=== PATIENT | male | born 1980 | race Caucasian/White ===

== ENCOUNTER 2016-03-21 13:06 | Emergency (ER) | payer SELFPAY ==
[~2016-03-21] VITALS: Ht 175.3 cm; Wt 74.5 kg
[~2016-03-21 13:06] MED LIST: BACT800T5 PO; SUBO8MIS SL
[2016-03-21 13:15] VITALS: BP 130/88; PULSE 73; RESP 16; TEMP 98.8; O2SAT 100
--- NOTE | 2016-03-21 14:23 | RADHPO ---
EXAM DATE/TIME: 03/21/2016 13:58 [place] COMPARISON: No previous studies available for comparison. INDICATIONS : Left heel pain. Possible foreign body. MEDICAL HISTORY : None. SURGICAL HISTORY : None. ENCOUNTER: Initial ACUITY: 4 - 6 months PAIN SCORE: 7/10 LOCATION: Left heel FINDINGS: Two view examination of the left heel demonstrates the trabecula to be intact with no evidence of fra cture. There is a normal calcaneal angle. The soft tissues are of normal thickness. CONCLUSION: Unremarkable examination of the left heel. Kera Boss MD on March 21, 2016 at 14:22 Board Certified Radiologist. This report was verified electronically.
--- NOTE | 2016-03-21 14:38 | PD ---
HPI Chief Complaint: Foreign Body Time Seen by Provider: 13:30 Travel History International Travel<30 days: No Contact w/Intl Traveler<30days: No Traveled to known affect area: No History of Present Illness HPI 36-year-old male presents to the emergency room for evaluation of left heel pain for the past 4-5 months. Patient states 5 months ago he stepped on stained -glass. His was able to pull out a large piece of glass but patient states since then he has had persistent discomfort in the heel and is concerned that there is retained foreign body. Denies redness, drainage, or edema. States he came in today because they can no longer take it. He has not been taking anything for pain. Patient has not been able to follow up with the primary care physician because he does not have insurance. [facility] Past Medical History Diminished Hearing: No Influenza Vaccination: No Social History Alcohol Use: No Tobacco Use: Yes (1 PPD) Substance Use: No Allergies-Medications (Allergen,Severity, Reaction): Coded Allergies: No Known Allergies (Verified , 03/21/16) Reported Meds & Prescriptions Reported Meds & Active Scripts Active No Active Prescriptions or Reported Medications Review of Systems Except as stated in HPI: all other systems reviewed are Neg Physical Exam Narrative GENERAL: Well-nourished, well-developed male in no acute distress. Afebrile. Ambulatory. SKIN: Warm and dry. There is an indurated area in the left heel which measures about 1 cm in diameter. No fluctuance, pointing, drainage, inflammation, or lymphangitis. HEAD: Normocephalic. EYES: No scleral icterus. No injection or drainage. NECK: Supple, trachea midline. No JVD or lymphadenopathy. EXTREMITY: Left heel nontender to palpation. Full range of motion in all joints. No joint swelling/injury. Data Data Last Documented VS Vital Signs Date Time Temp Pulse Resp B/P Pulse Ox O2 Delivery O2 Flow Rate FiO2 03/21/16 13:15 98.8 73 16 130/88 100 Orders Foot, Heel Only ([id number]) (03/21/16 ) [facility] Medical Decision Making Medical Screen Exam Complete: Yes Emergency Medical Condition: Yes Medical Record Reviewed: Yes Differential Diagnosis Foreign body versus abscess versus plantar wart Narrative Course 36-year-old male presents to the emergency room for evaluation of possible foreign body/glass in his left heel. Patient states about 5 months ago he stepped on glass and he believes are still a retained foreign body because he has had persistent pain. States he can no longer take the pain. He has not been able to follow-up because he does not have a primary care physician. Lower extremity is neurovascularly intact. There is a 1 cm area of induration in the heel without evidence of infection. No foreign body appreciated on x- ray. Patient either has plantar warts or scar tissue from previous injury. No indication for I&D. He was told to follow up with chief financial officer to return for worsening symptoms. He understands and agrees to plan. Diagnosis Primary Impression: Pain of left heel Referrals: Hospice Patient Care Secretary Patient Instructions: General Instructions Additional Instructions: Rest and drink plenty of fluids. Follow up with a primary care physician. Return to emergency room for worsening symptoms, as discussed. Scripts No Active Prescriptions or Reported Meds Disposition: 01 DISCHARGE HOME Condition: Stable Laxmi Pope Mar 21, 2016 14:38
== END 2016-03-21 14:45 | disposition home or self-care (01) ==
LOC: PHEFT 13:06
DX: M79.672 Pain in left foot (principal); F17.210 Nicotine dependence, cigarettes, uncomplicated
CPT/HCPCS: 73650; 99283

== ENCOUNTER 2017-07-05 12:35 | Emergency (ER) | payer SELFPAY ==
[~2017-07-05] VITALS: Ht 175.3 cm; Wt 72.0 kg
[2017-07-05 12:40] VITALS: BP 135/84; PULSE 73; RESP 16; TEMP 98.1; O2SAT 98
--- NOTE | 2017-07-05 13:14 | PD ---
HPI Chief Complaint: Eye Problems/Injury Time Seen by Provider: 12:53 Travel History International Travel<30 days: No Contact w/Intl Traveler<30days: No Traveled to known affect area: No History of Present Illness HPI 37-year-old male with right eye irritation and foreign body sensation 3 days. He reports on Monday he was removing all carpets and something may fling into the eye. On Monday he noticed right eye irritation with crusting of the lashes. Over the last 2 days he noticed swelling to the right upper lid. He has been attempting to use stye ease [id number] eyedrops with minimal relief. He denies visual changes, eye pain, headache. Symptom severity is moderate. No aggravating or alleviating factors. [facility] Past Medical History Medical History: Denies Significant Hx Diminished Hearing: No Tetanus Vaccination: > 5 Years Influenza Vaccination: No Past Surgical History Surgical History: No Previous Surgery Social History Alcohol Use: No Tobacco Use: Yes (1/2 PPD) Substance Use: No Allergies-Medications (Allergen,Severity, Reaction): Coded Allergies: No Known Allergies (Verified Adverse Reaction, Unknown, 07/05/17) Reported Meds & Prescriptions Reported Meds & Active Scripts Active No Active Prescriptions or Reported Medications Review of Systems Except as stated in HPI: all other systems reviewed are Neg General / Constitutional: No: Fever Eyes: Positive: Redness, Foreign Body Sensation HENT: No: Headaches Cardiovascular: No: Chest Pain or Discomfort Respiratory: No: Shortness of Breath Gastrointestinal: No: Abdominal Pain Genitourinary: No: Dysuria Physical Exam Narrative GENERAL: Alert and well-appearing 27-year-old male SKIN: Warm and dry. HEAD: Normocephalic. EYES: Right eye: No injection or drainage. Pupils equal, round, reactive to light. EOMs intact. Visual carvalho intact. Cornea is clear. No fluorescein dye uptake. Mild swelling and erythema to the upper lid with stye present. Visual acuity: R:20/30, L: 20/25, B:20/25 NECK: Supple CARDIOVASCULAR: Regular rate and rhythm RESPIRATORY: Breath sounds equal bilaterally. No accessory muscle use. GASTROINTESTINAL: nondistended. MUSCULOSKELETAL: No cyanosis, or edema. Data Data Last Documented VS Vital Signs Date Time Temp Pulse Resp B/P (MAP) Pulse Ox O2 Delivery O2 Flow Rate FiO2 4/25/18 12:40 98.1 73 16 135/84 (308) 05 [facility] Medical Decision Making Medical Screen Exam Complete: Yes Emergency Medical Condition: Yes Differential Diagnosis Corneal abrasion, conjunctival foreign body, stye Narrative Course This is a 37-year-old male here with a STYE to the right upper lid. Visual acuities intact. No fluorescein dye uptake. Patient be treated with erythromycin ointment. Return precautions were discussed. Diagnosis Primary Impression: Stye Qualified Codes: H00.011 - Hordeolum externum right upper eyelid Referrals: Cad Engineer Primary Care Physician Additional Instructions: Antibiotic ointment as directed. Follow-up with your doctor. Return if he develop new or worsening symptoms Scripts Erythromycin Opth Oint (Erythromycin Opth Oint) 5 Mg/Gm Oint 1 APPLIC RIGHT EYE QID for Infection, #1 TUBE 0 Refills Prov: Marcia Irvin 07/05/17 Disposition: 01 DISCHARGE HOME Condition: Stable Marcia Irvin Jul 05, 2017 13:14
[2017-07-05] MEDS ORDERED: ERYTOIN10 RIGHT EYE (13:18)
== END 2017-07-05 13:30 | disposition home or self-care (01) ==
LOC: PHEFT 12:35
DX: H00.011 Hordeolum externum right upper eyelid (principal); F17.200 Nicotine dependence, unspecified, uncomplicated
CPT/HCPCS: 99283